=== PATIENT | male | born 1990 | race Caucasian/White ===

== ENCOUNTER 2019-07-28 12:51 | Emergency (ER) | payer OTHER | END 2019-07-28 14:27 | disposition short-term general hospital (02) | LOC: ED 12:51 | DX: T25.222A Burn of second degree of left foot, initial encounter (principal); W01.0XXA Fall on same level from slipping, tripping and stumbling without subsequent striking against object, initial encounter; Y93.89 Activity, other specified; Y92.89 Other specified places as the place of occurrence of the external cause; Y99.8 Other external cause status ==